=== PATIENT | male | born 1940 | race Caucasian/White ===

== ENCOUNTER 2017-11-15 13:30 | Emergency (ER) | payer MEDICARE, BC ==
[2017-11-15] MEDS: Ciprofloxacin 500 MG Tab PO ONE (15:28)
[2017-11-15 15:58] VITALS: BP 132/61
--- NOTE | 2017-11-17 13:14 | ER ---
DATE SEEN: 11/15/2017 The 4 blood cultures that were obtained yesterday have come back positive. The patient is moments away from getting on the plane to [place]. When he gets there, he is advised to check in with [facility] or go to the emergency room right away. He has taken Cipro this morning. His fever has broken, feels better, but still feels weak. The patient was advised to drink extra amounts of fluids and go directly from the plane to the emergency room when he gets to [place]. ASSESSMENT: Probable early sepsis. /[id number] KOSTAS/ABIODUN DUENAS
--- NOTE | 2017-11-18 16:07 | ER ---
DATE SEEN: 11/15/2017 TIME SEEN: 1340 hours. HISTORY OF PRESENT ILLNESS: Mr. Ascencio is a 77-year-old who has had a previous ileal loop diversion because he had bladder cancer and prostate cancer. He notes when he gets sick, he feels kind of weak and tired and has had 2 episodes of sepsis, treated at [place], [place], and other episodes of abnormalities. He presents today with fever and headache, 7/10 in intensity. He finds it is probably secondary to not drinking as much as usual. He feels slightly dizzy. He has come in with his son as he is visiting with his son here in [facility]. When he feels like a urinary tract infection, he has p.r.n. Cipro that he takes. Pain is 3/10 in intensity. The most of his discomfort is generalized abdomen, right upper quadrant and left upper quadrant and transabdominal. He denies back pain. No previous history of kidney stones. He has had more diarrhea than usual. He actually had constipation, and he had pellet-like stools this morning, but it is looser than usual this morning. Otherwise, he has gone 3 days without a bowel movement, Saturday to Saturday11/08/17 through 11/11/17 Urine is darker in his ileostomy bag than usual. He has been diagnosed with prostate cancer, bladder cancer, ileal diversion because of the bladder cancer. ALLERGIES: Hydrocodone, morphine, oxycodone. MEDICATIONS: Acetaminophen, Benadryl, amlodipine, and on Cipro, but he does not have any Cipro presently. REVIEW OF SYSTEMS: HEENT: He has mild headache. No compromised vision, maybe 3/10 in intensity. No neck stiffness. No sore throat. No sinus congestion. No runny nose. No cough that is new. He has a baseline cough. CARDIORESPIRATORY: Denies chest pain, irregular heartbeat, near syncope, but he does have mild dizziness, mild lightheadedness. GI: He has mild abdominal discomfort, not severe. No associated back pain. No history of renal stones. 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 Treated by [facility]. Also, he has had ileal loop diversion. His bladder has been removed (decreased as the patient had prior prostate obstruction, he just has enlarged prostate). MUSCULOSKELETAL: He has mild aches in his muscles and denies joint aches. NEURO: Denies falling. He feels his gait is changed slightly. He is slightly lightheaded. No seizures. PSYCHIATRIC: Negative, no depression. PHYSICAL EXAMINATION: VITAL SIGNS: Blood pressure 132/71, heart rate 100 to 102, respirations 16, oxygen saturation 94% to 95%, 77.11 kg, BMI 24.4 kg/m2. GENERAL: The patient is accompanied by his son. The patient is lying down. His face is slightly flushed. The patient is pleasant, well dressed, articulate. No compromise of speech or thought processes. HEENT: PERRLA intact. Pharynx: Mucosa slightly dry. NECK: No cervical adenopathy or bruits in neck. No masses in neck. LUNGS: Clear without rales, rhonchi, or wheezes. HEART: S1, S2. No irregular rate and rhythm. ABDOMEN: Soft. Mild generalized abdominal discomfort. Left mid abdominal ileal loop ureterostomy and urine is somewhat milky brown appearance. It is not clear. No CVA percussion tenderness. EXTREMITIES: Without edema. NEURO: Deep tendon reflexes in upper and lower extremities symmetrical 1+, normoactive. Cranial nerves 2 through 12 intact. Oriented x3. Gait is mildly ataxic, somewhat wide- based. Romberg negative. No past pointing. No decreased muscle strength in upper and lower extremities. LABORATORY FINDINGS: White count 13,400, PMNs 88, lymphocytes 4, bands 2. Complete metabolic panel is good except for BUN of 26 and creatinine 1.8 with a GFR of 37, glucose 125. Total bilirubin is 3.8, AST 53, ALT 82. Sodium 137, potassium 4.0, chloride 101, bicarb 28. Urinalysis is pending. Urine culture is pending. Blood culture is pending. Lactate was 1.3. ASSESSMENT: 1. Urinary tract infection with probable cystitis of ileal loop. 2. No evidence for gastrointestinal complaints. 3. Could be possibly early sepsis, which he is usually treated with Cipro, which he has on hand, but it is now in [place], and he did not bring it with him. Plan is to use Cipro. 4. Status post ileal loop surgery for bladder cancer, bladder completely removed, cystectomy, and prostate cancer. 5. His care is being followed by [facility]. 6. Surprising elevated bilirubin, etiology indeterminate. Has chemotherapy and bilirubin and bandemia will need to be followed. PLAN: Cipro oral. The patient is to start the medicine. If he is not improved after he flies back to [place], tomorrow he is to see his doctor emergently. Take at least 2 or more, preferably more, quarts of fluid a day. Return to doctor emergently if he is markedly worse tomorrow. He is flying out tomorrow to [place]. /[id number] KOSTAS/ABIODUN
--- NOTE | 2017-11-19 09:53 | ER ---
DATE SEEN: 11/15/2017 TELEPHONE CALL The patient is known to have E. coli and urinary tract infection, and had been started on Cipro. I believe this organism was resistant to that. On four aerobic cultures, he had E. coli grown. The information was sent to [facility]. This will allow them to start antibiotic. We had spoken to him, that it was absolutely mandatory for him to go to the hospital. The following day after he got into [place], he did that and was hospitalized and he is feeling great. He was so thankful for the help we gave to him, he appreciated that. Apparently, also they are going to investigate his atrial fibrillation, but that is a secondary problem at this point. 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 /[id number] KOSTAS/ABIODUN
== END 2017-11-15 15:48 | disposition home or self-care (01) ==
LOC: FB.ED 13:30
DX: A41.51 Sepsis due to Escherichia coli [E. coli] (principal); N39.0 Urinary tract infection, site not specified; Z88.5 Allergy status to narcotic agent; Z85.51 Personal history of malignant neoplasm of bladder; Z98.890 Other specified postprocedural states
CPT/HCPCS: 36415; 80053; 83605; 85025; 87040; 87077; 87086; 87088; 87186; 99283; A9270

== ENCOUNTER 2019-07-28 16:03 | Inpatient (IN) | payer MEDICARE, BC ==
[2019-07-28] MEDS ORDERED: Sodium Chloride 0.9% 10 ML Syringe FLUSH PRN (17:50)
[2019-07-28] MEDS ORDERED: Aluminum Hydroxide/Magnesium Hydroxide Susp 30 ML Cup PO PRN (18:25)
[2019-07-28] MEDS ORDERED: diphenhydrAMINE 50 MG Cap PO PRN (18:28)
[2019-07-28] MEDS: Sodium Chloride 0.9% 1,000 ML IV SCH (18:30)
[2019-07-28] MEDS: Ciprofloxacin in D5W 400 MG in Premix Bag 1 BAG IV SCH ×2 (19:39)
[2019-07-28] MEDS: Acetaminophen 500 MG Tab PO SCH (19:44)
[2019-07-28] MEDS: Acetaminophen 500 MG Tab ONE (20:00)
[2019-07-28] MEDS: Apixaban 5 MG Tab PO SCH (20:45)
[2019-07-28] MEDS: Ampicillin/Sulbactam Na 1.5 GM in Sodium Chloride 0.9% 50 ML IV SCH (20:47)
[2019-07-28] MEDS ORDERED: hydrOXYzine HCl 25 MG Tab PO PRN (21:02)
[2019-07-29 01:14] VITALS: PULSE 59
[2019-07-29] MEDS: Ampicillin/Sulbactam Na 1.5 GM in Sodium Chloride 0.9% 50 ML IV SCH (04:02)
[2019-07-29] MEDS: Sodium Chloride 0.9% 1,000 ML IV SCH (04:03)
[2019-07-29] MEDS: Acetaminophen 500 MG Tab ONE (04:08)
[2019-07-29] MEDS: Ciprofloxacin in D5W 400 MG in Premix Bag 1 BAG IV SCH ×2 (08:54)
[2019-07-29] MEDS ORDERED: amLODIPine 2.5 MG Tab PO SCH (09:00)
[2019-07-29] MEDS: Apixaban 5 MG Tab PO SCH (09:06)
[2019-07-29] MEDS: Acetaminophen 500 MG Tab PO SCH (09:08)
[2019-07-29 09:10] VITALS: BP 144/90
[2019-07-29] MEDS ORDERED: cefTRIAXone 2 GM Vial IVPUSH SCH (10:45)
--- NOTE | 2019-07-29 11:49 | DISCH ---
DISCHARGE DATE: 07/29/2019 ADMITTING DIAGNOSES: Escherichia coli urosepsis, secondary to bladder cancer with ureterostomy. SURGICAL PROCEDURES: None. CONSULTATION: None. MEDICATIONS: Please see med recon list. HISTORY OF PRESENT ILLNESS: Soha Hunt is a 78-year-old male, admitted to [facility]. Had been seen by Dr. Pillai 2 days prior to admission with suspicion for urinary source of infection, fever, chills, sweats. He was placed on cephalexin and ciprofloxacin, and discharged home. The following positive blood culture necessitating intervention treatment and care. Presented with 5-day history of complicated fever, chills, and sweats. Please see HPI. HOSPITAL COURSE: The patient was admitted to hospital for treatment. He was started on ampicillin/sulbactam and ciprofloxacin IV. Response was satisfactory. Fever defervesced, clinically was well. On the morning of 07/29, it was found that blood culture came back E. coli, sensitive to 4 antibiotics; tobramycin, gentamicin, ampicillin/sulbactam, and ceftriaxone. Ceftriaxone appropriate treatment. Discussed at length the implication, 10 days IV therapy, blood culture on day #3, 10-day course blood culture at end of treatment. No contraindications to therapy. PHYSICAL EXAMINATION: GENERAL: Appears comfortable. NECK: Benign. Thyroid small. CHEST: Clear in all lung love. HEART: No ectopy or murmur. ABDOMEN: Benign. VITAL SIGNS: 36.3, 59, 110/66, and 96%. ASSESSMENT: Urosepsis and Escherichia coli. PLAN: The patient looks well, outpatient treatment appropriate, 10-day course of IV ceftriaxone, blood culture on day #3, blood culture on day #10, cooperative care and well being. /[id number] /ABIODUN
--- NOTE | 2019-07-29 14:41 | HP ---
ADMISSION DATE: 07/28/2019 REASON FOR VISIT: Urosepsis, positive blood cultures. HISTORY OF PRESENT ILLNESS: Soha Ascencio is a 78-year-old male, [facility] resident, was seen and evaluated by Dr. Pillai on 07/27/2019 with fever, chills, and suspicion for sepsis. Has a ureterostomy, had a couple of episodes of urosepsis. Seen by Dr. Pillai, placed on cephalexin and Cipro, discharged home. He was found to have a positive blood culture, resulting in hospitalization and intervention. Blood culture x1 positive but bug unknown. Because of sepsis and concerns and potential for identification, admission to hospital is indicated. He describes some fever, chills, sweats, and lethargy over about 5 days' duration. He had been up in the [facility]. Fever has been as high as 101.4. Little fatigue, lethargy, headache, and some reduced urine output. MEDICATIONS ON ADMISSION,: 1. Ascorbic acid. 2. Vitamin C 500 mg 1 p.o. t.i.d. 3. Refresh eyedrops one drop b.i.d. both eyes p.r.n. dry eyes. 4. Cephalexin 500 mg 1 p.o. t.i.d. UTI. 5. Ciprofloxacin 500 mg p.o. b.i.d. UTI. 6. Vitamin B12 1000 mg one daily. 7. Eliquis 5 mg b.i.d. 8. 50 mg of Benadryl at bedtime sleep enhancement. PAST MEDICAL HISTORY: Significant for previous suprapubic prostatectomy for prostate cancer in 1997, bladder diagnosis cancer in 2014 resulting in bladder removal, ureterostomy, and chemotherapy. He has had two lumbar back surgeries and remote adolescent tonsillectomy. No other operative procedures, hospitalizations, unusual childhood diseases, major injuries, or fractures. He has had several episodes of skin cancer. SOCIAL HISTORY: He lives with his bride in our community. 75. Four kids, all boys. Nine grandchildren. Still works for [employer], he is a plant production worker. Never smoked. No alcohol consumption. No illicit drug use. FAMILY HISTORY: Negative for early heart disease, diabetes mellitus, or inheritable cancers. REVIEW OF SYSTEMS: Thirteen review of systems; other than HPI, none noted. Wears corrective eyeglasses. Bowels have been fine. Urine output has been satisfactory. Ostomy working functionally. Mood has been stable. PHYSICAL EXAMINATION: VITAL SIGNS: 78.426 kg, 37.2, 81 pulse, 134/74, 18, and 97%. GENERAL: Elderly gentleman, cooperative, conversant, and appears his stated age or younger. HEENT: Funduscopic benign. Conjunctivae clear. Bright tympanic membranes. Clear nasal discharge. Mouth and oropharynx clear. Good dentition for age. Tongue midline. Good gag reflex. NECK: Benign. Thyroid small. No adenopathy. No meningismus. CHEST: Clear in all lung love. No adventitious sounds. HEART: On auscultation, no ectopy or murmur. BREASTS: Normal male breasts. ABDOMEN: Benign lower abdominal surgical scars noted. Ileostomy site, right mid abdomen. Bag in place. : Normal male genitalia. RECTAL EXAM: Declined, deferred. EXTREMITIES: Well perfused. SKIN: Sunlight related changes, postoperative skin cancer changes noted. PSYCHIATRIC: Mood was stable. LABORATORY STUDIES: Blood culture positive from [facility]. ASSESSMENT: Urosepsis, bug uncertain, fever, chills, and positive culture. PLAN: We will admit. We will do with ampicillin/sulbactam and ciprofloxacin IV. Cooperative care and well being. Results and intervention to follow. /[id number] SUNG/ABIODUN
== END 2019-07-29 12:30 | disposition home or self-care (01) | DRG 696 ==
LOC: FB.MS 16:03
PROVIDERS: ADMIT Family Medicine; ATTEND Family Medicine
DX: R39.89 Other symptoms and signs involving the genitourinary system (principal); C67.9 Malignant neoplasm of bladder, unspecified; Z90.49 Acquired absence of other specified parts of digestive tract; Z85.46 Personal history of malignant neoplasm of prostate; Z85.51 Personal history of malignant neoplasm of bladder; Z90.89 Acquired absence of other organs; Z98.890 Other specified postprocedural states; Z79.899 Other long term (current) drug therapy; Z93.6 Other artificial openings of urinary tract status
CPT/HCPCS: 36415; 80048; 85025; A9270-GY; J0295; J0696; J0744; J7030; J7050